=== PATIENT | male | born 1970 | race African-American/Black ===

== ENCOUNTER 2022-02-06 14:29 | Emergency (ER) | payer OTHER ==
[~2022-02-06] VITALS: Ht 165.1 cm; Wt 65.8 kg
[2022-02-06 14:36] VITALS: BP 116/81; TEMP 98.2
== END 2022-02-06 16:03 | disposition home or self-care (01) ==
LOC: ED 14:29
DX: M54.59 Other low back pain (principal); S30.0XXA Contusion of lower back and pelvis, initial encounter; W22.8XXA Striking against or struck by other objects, initial encounter; Y92.89 Other specified places as the place of occurrence of the external cause
CPT/HCPCS: 96372; 99283; J1885; J2360

== ENCOUNTER 2022-07-04 15:17 | Emergency (ER) | payer OTHER ==
[~2022-07-04] VITALS: Ht 165.1 cm; Wt 65.8 kg
[2022-07-04 15:49] VITALS: TEMP 98.5
[2022-07-04 16:39] VITALS: BP 110/74
== END 2022-07-04 16:41 | disposition home or self-care (01) ==
LOC: ED 15:17
DX: S50.12XA Contusion of left forearm, initial encounter (principal); W29.4XXA Contact with nail gun, initial encounter; Y93.89 Activity, other specified; Y92.89 Other specified places as the place of occurrence of the external cause
CPT/HCPCS: 80307; 90471; 90715; 99282